=== PATIENT | male | born 1970 | race Two or more races ===

== ENCOUNTER 2017-05-31 18:31 | Emergency (ER) | payer MEDICAID ==
[2015-10-23 05:42] VITALS: BMI 25.4
[~2017-05-31 18:31] MED LIST: HYDROCODONE-APA1 TAB PO; MULTIPLE VITAMI1 TA1 PO; PERCOCET 10/3251 TA1 PO; ULTRAM50 MG PO; VALIUM10 MG PO
== END 2017-05-31 20:03 | disposition home or self-care (01) ==
LOC: D.ER 18:31
DX: M25.461 Effusion, right knee (principal); M25.561 Pain in right knee

== ENCOUNTER 2017-07-25 15:17 | Emergency (ER) | payer MEDICAID ==
[2015-10-23 05:42] VITALS: BMI 25.4
== END 2017-07-25 16:00 | disposition home or self-care (01) ==
LOC: D.ER 15:17
DX: M25.561 Pain in right knee (principal); M25.461 Effusion, right knee

== ENCOUNTER 2017-12-21 11:25 | Emergency (ER) | payer MEDICAID ==
[2015-10-23 05:42] VITALS: BMI 25.4
== END 2017-12-21 11:50 | disposition home or self-care (01) ==
LOC: D.ER 11:25
DX: K08.89 Other specified disorders of teeth and supporting structures (principal)

== ENCOUNTER 2017-12-22 17:48 | Emergency (ER) | payer MEDICAID ==
[2015-10-23 05:42] VITALS: BMI 25.4
== END 2017-12-22 21:47 | disposition home or self-care (01) ==
LOC: D.ER 17:48
DX: K08.89 Other specified disorders of teeth and supporting structures (principal)

== ENCOUNTER 2018-01-19 18:51 | Emergency (ER) | payer MEDICAID ==
[2015-10-23 05:42] VITALS: BMI 25.4
== END 2018-01-19 19:31 | disposition home or self-care (01) ==
LOC: D.ER 18:51
DX: K02.9 Dental caries, unspecified (principal); K08.89 Other specified disorders of teeth and supporting structures

== ENCOUNTER 2018-02-07 13:56 | Emergency (ER) | payer MEDICAID ==
[2015-10-23 05:42] VITALS: BMI 25.4
== END 2018-02-07 16:15 | disposition left against medical advice (07) ==
LOC: D.ER 13:56
DX: K04.7 Periapical abscess without sinus (principal); K08.89 Other specified disorders of teeth and supporting structures

== ENCOUNTER 2018-10-21 00:23 | Emergency (ER) | payer SELFPAY ==
[~2018-10-21] VITALS: Ht 166.4 cm; Wt 84.1 kg
[2018-10-21 00:31] VITALS: Ht 166.4 cm; Wt 84.1 kg
[2018-10-21 00:58] LABS: APPEARANCE CLEAR (CLEAR); BILIRUBIN NEGATIVE (NEGATIVE); COLOR YELLOW (YELLOW); GLUCOSE NEGATIVE (NEGATIVE); KETONE NEGATIVE (NEGATIVE); NITRITE NEGATIVE (NEGATIVE); PROTEIN NEGATIVE (NEGATIVE); UROBILINOGEN NORMAL (NORMAL)
[2018-10-21 01:03] LABS: UDS - AMPHET POSITIVE QUAL (NEGATIVE); UDS - BARB NEGATIVE QUAL (NEGATIVE); UDS - BENZO NEGATIVE QUAL (NEGATIVE); UDS - COCAINE NEGATIVE QUAL (NEGATIVE); UDS - OPIATE NEGATIVE QUAL (NEGATIVE); UDS - PCP NEGATIVE QUAL (NEGATIVE); UDS - THC NEGATIVE QUAL (NEGATIVE)
[2018-10-21 01:24] LABS: BASOPHILS 0.3 % (0-2); EOSINOPHILS 0.5 % (0-7); HEMATOCRIT 43.6 % (42.0-54.0); HEMOGLOBIN 15.1 g/dL (13.5-17.5); IMMATURE GRANULOCYTES 0.3 % (0-5); LYMPHOCYTES 24.6 % (15-50); MCH 30.9 pg (26.0-34.0); MCHC 34.6 g/dL (31.0-37.0); MCV 89.3 fL (80.0-100.0); MEAN PLATELET VOLUME 9.5 fL (7.4-10.4); MONOCYTES 7.7 % (2-11); NEUTROPHILS 66.6 % (40-80); PLATELET COUNT 345 10x3/uL (130-400); RBC 4.88 10x6/uL (4.20-6.10); RDW 12.4 % (11.5-14.5); WBC 12.1 10x3/uL (4.8-10.8)
[2018-10-21 01:39] LABS: ALKALINE PHOSPHATASE 64 U/L (46-116); ALT (SGPT) 47 U/L (10-68); BILIRUBIN - TOTAL 0.33 mg/dL (0.2-1.3); CALC OSMOLALITY 276 mosm/kg (275-300); CALCIUM 8.7 mg/dL (8.5-10.1); CARBON DIOXIDE 29.4 mmol/L (21.0-32.0); CHLORIDE - SERUM 103 mmol/L (98-107); CREATININE - SERUM 0.8 mg/dL (0.6-1.3); GLUCOSE 104 mg/dL (74-106); MAGNESIUM - SERUM 2.2 mg/dL (1.8-2.4); POTASSIUM - SERUM 3.7 mmol/L (3.5-5.1); PROTEIN - SERUM 7.8 g/dL (6.4-8.2); SODIUM 139 mmol/L (136-145); UREA NITROGEN 9 mg/dL (7-18); eGFR NON AFRICAN AMERICAN > 90 mL/min (90-120)
[2018-10-21 07:43] VITALS: BP 130/80
== END 2018-10-21 07:48 ==
LOC: D.ER 00:23
PROVIDERS: Emergency Medicine
DX: F32.9 Major depressive disorder, single episode, unspecified (principal); F15.10 Other stimulant abuse, uncomplicated; R45.851 Suicidal ideations

== ENCOUNTER 2019-01-06 16:14 | Emergency (ER) | payer MEDICAID ==
[~2019-01-06] VITALS: Ht 166.4 cm; Wt 84.1 kg
[2019-01-06 16:23] VITALS: Ht 166.4 cm; Wt 84.1 kg
[2019-01-06] MEDS ORDERED: VIBRAMYCIN 100100 MG PO (17:16)
[2019-01-06] MEDS ORDERED: MEDROL DOSE PACK4 MG PO (17:16)
[2019-01-06 17:24] VITALS: BP 143/86
== END 2019-01-06 17:27 | disposition home or self-care (01) ==
LOC: D.ER 16:14
DX: J02.9 Acute pharyngitis, unspecified (principal)

== ENCOUNTER 2019-01-23 16:23 | Emergency (ER) | payer BC ==
[~2019-01-23] VITALS: Ht 166.4 cm; Wt 86.4 kg
[~2019-01-23 16:23] MED LIST changes: +MEDROL DOSE PACK4 MG PO; +VIBRAMYCIN 100100 MG PO
[2019-01-23 16:41] VITALS: BP 123/76; Ht 166.4 cm; Wt 86.4 kg
[2019-01-23] MEDS ORDERED: PREDNISONE20 MG PO (17:26)
== END 2019-01-23 18:38 | disposition home or self-care (01) ==
LOC: D.ER 16:23
DX: J02.9 Acute pharyngitis, unspecified (principal)